=== PATIENT | female | born 1935 | race African-American/Black ===

== ENCOUNTER 2016-12-22 09:22 | Outpatient (CLI) | payer MEDICARE ==
[2016-12-22 11:57] LABS: #Basophils 0.1 thou/uL (0.0-0.2); #Eosinphils 0.1 thou/uL (0.0-0.7); #Lymphocytes 1.9 thou/uL (1.20-3.40); #Monocytes 0.4 thou/uL (0.11-0.59); #Neutrophils 2.5 thou/uL (1.40-6.50); %Basophils 1.1 % (0.0-1.0); %Eosinophils 2.3 % (0.0-10.0); %Lymphocytes 39.3 % (21.0-51.0); %Monocytes 7.1 % (0.0-10.0); %Neutrophils 50.3 % (42.0-75.0); Hemoglobin 10.7 g/dL (12.0-16.0); Mean Corpuscular HGB CONC 30.7 g/dL (32.0-36.0); Mean Corpuscular Volume 97.9 fl (81.0-99.0); Mean Platelet Volume 7.6 fL (7.4-10.4); Platelet Count 163 thou/uL (130-400); RBC Distribution Width 17.1 % (11.5-14.5); Red Blood Cell (RBC) Count 3.55 mill/uL (4.20-5.40); White Blood Cell (WBC) Count 4.9 thou/uL (4.8-10.8)
[2016-12-22 12:24] LABS: ALT (SGPT) 12 U/L (8-55); AST (SGOT) 24 U/L (5-34); Alkaline Phosphatase 97 U/L (40-150); Anion Gap 16 mmol/L (10-20); BUN (Urea Nitrogen) 17 mg/dL (9.8-20.1); Bilirubin, Total 0.3 mg/dL (0.2-1.2); Calc. Creatinine Clearance 0 mL/min (70-130); Calcium 9.1 mg/dL (7.8-10.44); Carbon Dioxide 26 mmol/L (23-31); Cardiac Risk 5.1 (Less than 4.5); Chloride 104 mmol/L (98-107); Cholesterol 236 mg/dl (< 200 Desired); Estimated GFR-MDRD 56; Globulin 3.6 g/dL (2.4-3.5); Glucose 96 mg/dL (83-110); HDL Cholesterol 46 mg/dL (>60 Neg Risk); LDL Cholesterol, Calculated 170 mg/dL; Potassium 5.1 mmol/L (3.5-5.1); Protein, Total 7.6 g/dL (6.0-8.3); Sodium 141 mmol/L (136-145); Triglycerides 99 mg/dL (Less than 150)
== END 2016-12-22 09:23 | disposition home or self-care (01) ==
LOC: NAVSJIPCSP 09:22
PROVIDERS: ATTEND Internal Medicine
DX: E78.5 Hyperlipidemia, unspecified (principal); I11.9 Hypertensive heart disease without heart failure; C56.9 Malignant neoplasm of unspecified ovary
CPT/HCPCS: 36415; 80053; 80061; 85025